=== PATIENT | male | born 1995 | race Caucasian/White ===

== ENCOUNTER 2018-12-16 15:58 | Emergency (ER) | payer OTHER, SELFPAY ==
[2018-12-16 16:01] VITALS: PULSE 98; RESP 27; TEMP 36.6; O2SAT 98
--- NOTE | 2018-12-16 16:17 | ED.GENADUL_ITS ---
Discharge Plan Disposition Patient Disposition: HOME Condition: Good Discharge Details Chief Complaint: AMS/LOC Clinical Impression: Alcohol intoxication Reason For Visit: FRANCI Primary Care Provider: Unknown,Unknown ED Provider: Rakesh Yeung Home Meds and New Rx's Prescriptions: No Action No Known Home Meds RF: 0 Discharge Instructions Instructions: Alcohol Intoxication (ED) Additional Instructions: Patient needs to stay with a responsible adult tonight. No further drinking alcohol tonight. Mental status should return to normal by morning. Return to ED if persistent vomiting, abdominal pain, continued confusion/altered mental status, other concerns. Referrals: Care Management [Provider Group] Discharge Data Discharge Date/Time-TO BE ENTERED AT DEPARTURE: 12/16/18 20:05 Medical Decision Making Patient here with presumed alcohol intoxication. Question drug ingestion though he denies. He is actively vomiting, intoxicated, agitated. EMS was able to place IV. Patient ordered for IV Phenergan to help with his vomiting but also to help with sedation. Fluids were hung. Laboratory studies ordered. Patient laboratory studies significant for an alcohol level of 200. Potassium a little low at 3.1 and will be replenished IV. He has stopped vomiting. He is sleeping. I am going to scan his head at this point just to be safe. He has had a liter of LR and a second bag of LR is hanging. Mother and updated on patient's status. Head CT is negative. Drug screen positive for marijuana only. He has had no further vomiting. He awakens relatively easily. would like to take him home and will stay with him overnight. No further alcohol intake. Return to ED if any concerns Lab Data Lab results reviewed: Yes I reviewed the patient's lab results. HPI General Mode of arrival: EMS . Date/Time Provider Initiated Documentation: 12/16/18 16:16 . Limitations to Documentation: altered mental status . Information obtained by: family, EMS and RN notes reviewed . HPI Narrative: Patient is brought in by ambulance for evaluation of altered mental status. Patient apparently has been drinking today. Mother went to check on him after she got a phone call from her [id number]. Patient was agitated and intoxicated. She placed a call to EMS. EMS transported patient in the ER. He is vomiting. He is agitated. He is swearing and not able to provide a history. Mother reports that he has no medical problems. She not aware of him having a drinking problem. Related Data Home Medications Medication Instructions Recorded Confirmed Unknown [No Known Home Meds] 03/19/16 12/16/18 Allergies Allergy/AdvReac Type Severity Reaction Status Date / Time No Known Allergies Allergy Unverified 12/16/18 16:04 General Stated Complaint: AMS/LOC GENA: 2 Review of Systems Review of Systems Unobtainable due to mental status PFS Social History Smoking/Tobacco Use Status: Never Exam Const General: intoxicated appearing and other (agitated, vomiting, swearing) Limitations: altered mental status HENMT Head: normocephalic and atraumatic Neck Neck: trachea midline and supple Resp Auscultation: clear to auscultation bilaterally Cardio Rate: regular rate Rhythm: regular rhythm Heart Sounds: S1 normal and S2 normal GI Palpation: soft and nontender Skin General skin exam: no rashes or lesions noted Neuro General: alert, awake and no focal motor deficits Psych Speech and Movement: agitated and slurred speech (mildly) Mood: irritable mood Course Vital Signs Temperature 97.9 F 12/16/18 16:01 Pulse 98 H 12/16/18 16:01 Respiratory Rate 27 H 12/16/18 16:01 Pulse Oximetry 98 12/16/18 16:01 Temperature 97.9 F 12/16/18 16:01 Temperature Source Skin 12/16/18 16:01 Pulse 98 H 12/16/18 16:01 Respiratory Rate 27 H 12/16/18 16:01 Pulse Oximetry 98 12/16/18 16:01 Oxygen Delivery Method Room Air 12/16/18 16:01 Oxygen Flow Rate 0 12/16/18 16:01 Pain Level 0 12/16/18 16:01
[2018-12-16] MEDS: Lactated Ringers 1,000 ML 1000 ML IV (16:27)
[2018-12-16 16:29] VITALS: RESP 22
[2018-12-16 16:48] LABS: Abs Immature Grans 0.02 k/cumm (0.0-0.09); Absolute Basophil Count 0.01 k/cumm (0.0-0.2); Absolute Eosinophil Count 0.03 k/cumm (0.0-0.7); Absolute Lymphocyte Count 0.91 k/cumm (1.2-3.4); Absolute Monocyte Count 0.42 k/cumm (0.11-0.7); Absolute Neutrophil Count 6.24 k/cumm (1.2-6.7); Basophils % 0.1; Eosinophils % 0.4; HCT 44.1 % (40.0-50.0); HGB 15.2 g/dL (13.5-17.5); Immature Grans % 0.3; Lymphocytes % 11.9; Mean Corp. HGB Concentration 34.5 g/dL (32.0-36.0); Mean Corpuscular Hemoglobin 30.7 pg (27.0-33.0); Mean Corpuscular Volume 89.1 fL (80-95); Mean Platelet Volume 10.2 fL (8.0-11.0); Monocytes % 5.5; Neutrophils % 81.8; Platelet Count 198 x1000/uL (130-400); RBC 4.95 m/cumm (4.50-6.00); RBC Distribution Width 13.3 % (11.8-14.1); White Blood Cell Count 7.63 k/cumm (4.4-10.8)
[2018-12-16 17:01] LABS: ALT 27 U/L (12-78); AST 21 U/L (15-37); Alkaline Phosphatase 70 U/L (46-116); Anion Gap 14.5 mmol/L (3-11); BUN 9 mg/dL (7-18); Bilirubin, Total 0.4 mg/dL (0.2-1.0); CO2 25.5 mmol/L (21.0-32.0); CREATININE 0.72 mg/dL (0.70-1.30); Calcium 8.7 mg/dL (8.5-10.1); Chloride 105 mmol/L (98-107); ETHANOL BLOOD 208.8 mg/dL (<3); Glucose 113 mg/dL (70-100); Magnesium 1.9 mg/dL (1.8-2.4); Potassium 3.1 mmol/L (3.5-5.1); Sodium 145 mmol/L (136-145); Total Protein 7.3 g/dL (6.4-8.2)
[2018-12-16] MEDS: Lactated Ringers 1,000 ML 125 ML IV (17:32)
[2018-12-16] MEDS: POTASSIUM CHLORIDE 10 MEQ/100 ML BAG 100 MEQ IVPB (17:40)
[2018-12-16 18:11] LABS: *AMPHETAMINES SCREEN URINE Negative (Negative); *BARBITURATES SCREEN URINE Negative (Negative); *BENZODIAZEPINES SCREEN URINE Negative (Negative); Cannabinoids THC POSITIVE (Negative); Cocaine Screen,Urine Negative (Negative); METHADONE URINE SCREEN Negative (Negative); OPIATES URINE SCREEN Negative (Negative); Tricyclic Antidepressants Negative (Negative)
--- NOTE | 2018-12-16 18:23 | DI.CT_ITS ---
SYMPTOM/DIAGNOSIS: ALTERED MENTAL STATUS NONCONTRAST HEAD CT: Comparison is made with 21 Mar 2011. No intracranial hemorrhage, mass or infarct is seen. The ventricles are normal in size. There is no evidence of skull fracture. The sinuses and mastoid air cells appear clear. IMPRESSION: Negative head CT.
--- NOTE | 2018-12-16 18:30 | DI.VRAD_ITS ---
EXAM: CT Head Without Contrast EXAM DATE/TIME: 12/16/2018 5:45 PM CLINICAL HISTORY: 23 years old, male; Signs and symptoms; Altered mental status/memory loss TECHNIQUE: Axial computed tomography images of the head/brain without contrast. Coronal and sagittal reformatted images were created and reviewed. COMPARISON: No relevant prior studies available. FINDINGS: Brain: No intracranial hemorrhage or extra-axial fluid collection. No evidence of mass effect or midline shift. Bajwa-white matter differentiation is intact. Ventricles: No ventriculomegaly. Bones/joints: No acute osseus lesion or fracture. Sinuses: Unremarkable as visualized. Mastoid air cells: Unremarkable. Soft tissues: Unremarkable. IMPRESSION: No acute intracranial pathology. Dictated and Authenticated by: David Dang MD. Ordering:ALTON Cameron MD
--- NOTE | 2018-12-16 19:57 | NUR.NOTE ---
pt refuses tdap stating i hate needles and i dont want one ever dont care Nursing Note:
[2018-12-16 20:12] VITALS: BP 122/66; PULSE 98; RESP 22; TEMP 36.6; O2SAT 98
--- NOTE | 2018-12-19 09:22 | PDOC.ERCMPRO ---
Care Management Progress Note 12/19-Dr. Yeung requested assistance with Rakesh establishing a PCP. Rakesh used to see Dr. Borden. No ED f/u needed. Dr. Mcmillan business information analyst. Referral faxed to [facility] this am.
== END 2018-12-16 20:05 | disposition home or self-care (01) ==
PROVIDERS: Emergency Provider Emergency Medicine
DX: F10.129 Alcohol abuse with intoxication, unspecified (principal); Y90.7 Blood alcohol level of 200-239 mg/100 ml; R11.2 Nausea with vomiting, unspecified; E87.6 Hypokalemia; F12.90 Cannabis use, unspecified, uncomplicated; R45.1 Restlessness and agitation
CPT/HCPCS: 36415; 80053; 80307; 96361; 96365; 96366; 96367; 99284; 70450; 80320; 83735; 85025; J3480

== ENCOUNTER 2019-04-23 15:58 | Emergency (ER) | payer OTHER, SELFPAY ==
[2019-04-23 16:09] VITALS: BP 125/75; PULSE 104; RESP 18; TEMP 37.1; O2SAT 97
--- NOTE | 2019-04-23 16:25 | W.ED.GENAD ---
Discharge Plan Disposition Patient Disposition: HOME Condition: Stable Discharge Details Chief Complaint: RashLesion Clinical Impression: Tick bite Primary Care Provider: Unknown,Unknown ED Provider: Kervin Vega Home Meds and New Rx's Prescriptions: No Action No Known Home Meds RF: 0 Discharge Instructions Instructions: Tick Bite (ED) Medical Decision Making 23-year-old male who [place]. Noticed a tick crawling on him and question whether it bit him on the left ankle. He is slightly anxious but exam is otherwise unremarkable, possible area of insect envenomation at the left lateral malleolus on the lower leg. Will treat with single one-time dose of doxycycline 200 mg given endemic Lyme in this area. Discussed with him home management as well as follow-up/return precautions HPI General Mode of arrival: ambulatory. Date/Time Provider Initiated Documentation: 04/23/19 16:00. Limitations to Documentation: no limitations. Information obtained by: patient. History of Present Illness 23 year old M presents to the emergency department with the chief complaint of Left ankle possible tick bite, described as mild and moderate, Quality is described as aching, and is localized to the left and lower extremity. Patient reports no radiation. Patient started experiencing this hour(s) and it has been constant. No relieving factors improve symptom(s), No exacerbating factors reported . Patient notes no other symptoms.; denies fever/chills. Patient did receive the following treatments prior to arrival, none Related Data Home Medications Medication Instructions Recorded Confirmed Unknown [No Known Home Meds] 03/19/16 12/16/18 Allergies Allergy/AdvReac Type Severity Reaction Status Date / Time No Known Allergies Allergy Unverified 12/16/18 16:04 General Stated Complaint: RashLesion GENA: 4 Review of Systems Review of Systems No fever or chills. Mild anxiety regarding tick bite. 4 systems reviewed and otherwise negative [facility] Social History Smoking/Tobacco Use Status: Never Alcohol Intake: current Alcohol Intake frequency: a few times a month Drug use: Daily Substance use type: marijuana Do you feel safe at home: Yes Do you feel safe in your relationship?: Yes Exam Narrative Exam Narrative: GEN: awake, alert, oriented 3. Pleasant, well groomed, interactive. HEAD: Normocephalic, atraumatic ENT: Mucous membranes moist, oropharynx unremarkable, External ear exam unremarkable EYES: PERRL, EOMI EXT: Full ROM, no edema, left ankle lateral malleolus with small 1 cm diameter area of erythema. No retained foreign body. Neuro: Grossly normal neurologic exam, conversant, interactive. Psych: Speech fluent, thoughts congruent, affect anxious Course Vital Signs Temperature 37.1 C 04/23/19 16:09 Pulse 104 H 04/23/19 16:09 Respiratory Rate 18 04/23/19 16:09 Blood Pressure 125/75 04/23/19 16:09 Pulse Oximetry 97 04/23/19 16:09 Temperature 37.1 C 04/23/19 16:09 Temperature Source Tympanic 04/23/19 16:09 Pulse 104 H 04/23/19 16:09 Respiratory Rate 18 04/23/19 16:09 Respiratory Effort Non-Labored 04/23/19 16:15 Blood Pressure 125/75 04/23/19 16:09 Blood Pressure Position Sitting 04/23/19 16:09 Pulse Oximetry 97 04/23/19 16:09 Oxygen Delivery Method Room Air 04/23/19 16:09 Oxygen Flow Rate 0 04/23/19 16:09 Pain Level 0 04/23/19 16:09 Comment 04/23/19 16:09
--- NOTE | 2019-04-23 16:28 | ED.GENADUL_ITS ---
Discharge Plan Disposition Patient Disposition: HOME Condition: Stable Discharge Details Chief Complaint: RashLesion Clinical Impression: Tick bite Primary Care Provider: Unknown,Unknown ED Provider: Kervin Vega Home Meds and New Rx's Prescriptions: No Action No Known Home Meds RF: 0 Discharge Instructions Instructions: Tick Bite (ED) Medical Decision Making 23-year-old male who [place]. Noticed a tick crawling on him and question whether it bit him on the left ankle. He is slightly anxious but exam is otherwise unremarkable, possible area of insect envenomation at the left lateral malleolus on the lower leg. Will treat with single one-time dose of doxycycline 200 mg given endemic Lyme in this area. Discussed with him home management as well as follow-up/return precautions HPI General Mode of arrival: ambulatory . Date/Time Provider Initiated Documentation: 04/23/19 16:00 . Limitations to Documentation: no limitations . Information obtained by: patient . History of Present Illness 23 year old M presents to the emergency department with the chief complaint of Left ankle possible tick bite, described as mild and moderate, Quality is described as aching, and is localized to the left and lower extremity. Patient reports no radiation. Patient started experiencing this hour(s) and it has been constant. No relieving factors improve symptom(s), No exacerbating factors reported . Patient notes no other symptoms.; denies fever/chills. Patient did receive the following treatments prior to arrival, none Related Data Home Medications Medication Instructions Recorded Confirmed Unknown [No Known Home Meds] 03/19/16 12/16/18 Allergies Allergy/AdvReac Type Severity Reaction Status Date / Time No Known Allergies Allergy Unverified 12/16/18 16:04 General Stated Complaint: RashLesion GENA: 4 Review of Systems Review of Systems No fever or chills. Mild anxiety regarding tick bite. 4 systems reviewed and otherwise negative [facility] Social History Smoking/Tobacco Use Status: Never Alcohol Intake: current Alcohol Intake frequency: a few times a month Drug use: Daily Substance use type: marijuana Do you feel safe at home: Yes Do you feel safe in your relationship?: Yes Exam Narrative Exam Narrative: GEN: awake, alert, oriented 3. Pleasant, well groomed, interactive. HEAD: Normocephalic, atraumatic ENT: Mucous membranes moist, oropharynx unremarkable, External ear exam unremarkable EYES: PERRL, EOMI EXT: Full ROM, no edema, left ankle lateral malleolus with small 1 cm diameter area of erythema. No retained foreign body. Neuro: Grossly normal neurologic exam, conversant, interactive. Psych: Speech fluent, thoughts congruent, affect anxious Course Vital Signs Temperature 37.1 C 04/23/19 16:09 Pulse 104 H 04/23/19 16:09 Respiratory Rate 18 04/23/19 16:09 Blood Pressure 125/75 04/23/19 16:09 Pulse Oximetry 97 04/23/19 16:09 Temperature 37.1 C 04/23/19 16:09 Temperature Source Tympanic 04/23/19 16:09 Pulse 104 H 04/23/19 16:09 Respiratory Rate 18 04/23/19 16:09 Respiratory Effort Non-Labored 04/23/19 16:15 Blood Pressure 125/75 04/23/19 16:09 Blood Pressure Position Sitting 04/23/19 16:09 Pulse Oximetry 97 04/23/19 16:09 Oxygen Delivery Method Room Air 04/23/19 16:09 Oxygen Flow Rate 0 04/23/19 16:09 Pain Level 0 04/23/19 16:09 Comment 04/23/19 16:09
[2019-04-23] MEDS: Doxycycline Hyclate 100 MG CAP 200 MG PO (16:44)
[2019-04-23 16:49] VITALS: BP 125/75; PULSE 104; RESP 18; O2SAT 97
== END 2019-04-23 16:47 | disposition home or self-care (01) ==
PROVIDERS: Emergency Provider Emergency Medicine
DX: S90.562A Insect bite (nonvenomous), left ankle, initial encounter (principal); W57.XXXA Bitten or stung by nonvenomous insect and other nonvenomous arthropods, initial encounter
CPT/HCPCS: 99283

== ENCOUNTER 2019-04-23 18:00 | Emergency (ER) | payer OTHER, SELFPAY ==
[2019-04-23 18:10] VITALS: BP 119/77; PULSE 84; RESP 12; TEMP 36.8; O2SAT 97
--- NOTE | 2019-04-23 18:24 | W.ED.GENAD ---
Discharge Plan Disposition Patient Disposition: HOME Condition: Improving Discharge Details Chief Complaint: Recheck Clinical Impression: Antibiotic drug intolerance Primary Care Provider: Unknown,Unknown ED Provider: Krevin Vega Home Meds and New Rx's Prescriptions: No Action No Known Home Meds RF: 0 Discharge Instructions Additional Instructions: You are stable for discharge to home at this time. Resume normal routine and activities. You likely have an intolerance but not true allergy to doxycycline. Please mention this to your health care providers in the future. Medical Decision Making 23-year-old male who I saw her earlier today for possible tick bite and for which she was given 200 mg of doxycycline. Patient states approximately 30 minutes after doxycycline administration he became nauseated and had some discrete bilious emesis but no edith vomiting. He is now improved. I do feel he received effect from a dose that he did not notice any pill fragments describes very small amounts of regurgitation. He is stable for discharge to home after reassurance. HPI General Mode of arrival: ambulatory. Date/Time Provider Initiated Documentation: 04/23/19 18:19. Limitations to Documentation: no limitations. Information obtained by: patient and family. History of Present Illness 23 year old M presents to the emergency department with the chief complaint of Nauseated after taking doxycycline, now improved, Quality is described as dull, and is localized to the abdomen. Patient reports no radiation. Patient started experiencing this minute(s) and it has been now resolved. No relieving factors improve symptom(s), No exacerbating factors reported . Patient notes no other symptoms.. Related Data Home Medications Medication Instructions Recorded Confirmed Unknown [No Known Home Meds] 03/19/16 12/16/18 Allergies Allergy/AdvReac Type Severity Reaction Status Date / Time No Known Allergies Allergy Unverified 12/16/18 16:04 General Stated Complaint: Recheck GENA: 5 Review of Systems Review of Systems No rash. 4 systems reviewed and otherwise negative. [facility] Social History Smoking/Tobacco Use Status: Never Alcohol Intake: current Alcohol Intake frequency: a few times a month Drug use: Daily Substance use type: marijuana Do you feel safe at home: Yes Do you feel safe in your relationship?: Yes Exam Narrative Exam Narrative: GEN: awake, alert, oriented 3. Pleasant, well groomed, interactive. HEAD: Normocephalic, atraumatic EYES: PERRL, EOMI NECK: Full ROM, no LEX, no menigismus CHEST/RESP: No respiratory distress Neuro: Grossly normal neurologic exam, conversant, interactive. Psych: Speech fluent, thoughts congruent, affect anxious Course Vital Signs Temperature 36.8 C 04/23/19 18:10 Pulse 84 04/23/19 18:10 Respiratory Rate 12 04/23/19 18:10 Blood Pressure 119/77 04/23/19 18:10 Pulse Oximetry 97 04/23/19 18:10 Temperature 36.8 C 04/23/19 18:10 Temperature Source Temporal Artery Scan 04/23/19 18:10 Pulse 84 04/23/19 18:10 Respiratory Rate 12 04/23/19 18:10 Respiratory Effort Non-Labored 04/23/19 18:13 Blood Pressure 119/77 04/23/19 18:10 Blood Pressure Position Sitting 04/23/19 18:10 Pulse Oximetry 97 04/23/19 18:10 Oxygen Delivery Method Room Air 04/23/19 18:10 Oxygen Flow Rate 0 04/23/19 18:10 Pain Level 0 04/23/19 18:10
== END 2019-04-23 18:35 | disposition home or self-care (01) ==
PROVIDERS: Emergency Provider Emergency Medicine
DX: R11.2 Nausea with vomiting, unspecified (principal); T36.4X5A Adverse effect of tetracyclines, initial encounter
CPT/HCPCS: 99283

== ENCOUNTER 2021-03-24 22:23 | Emergency (ER) | payer SELFPAY ==
--- NOTE | 2021-03-24 22:32 | ED.GENADUL_ITS ---
Discharge Plan Disposition Patient Disposition: HOME Condition: Good Discharge Details Clinical Impression: ETOH abuse Primary Care Provider: Unknown,Unknown ED Provider: Wu Gerardo Home Meds and New Rx's Prescriptions: No Action No Known Home Meds RF: 0 Discharge Instructions Instructions: Abuse of Alcohol (ED) Additional Instructions: Please follow-up closely with your counselors. Please use your mental health advocate whenever you feel you are struggling. If you notice any worsening of your symptoms, or any new symptoms such as vomiting, diarrhea, fever, chills, shortness of breath, chest pain, numbness, weakness, or fainting , please return immediately to the emergency department for reevaluation. Please follow up with your primary care provider as soon as possible for reassessment and reevaluation. As always, it was a pleasure participating in your medical care today. Discharge Data Discharge Date/Time-TO BE ENTERED AT DEPARTURE: 03/25/21 07:51 Medical Decision Making <NAKIA Bauer - Last Filed: 03/25/21 16:09> Patient is a 25-year-old male presenting today, brought in by his father, with chief complaint of unusual behavior. Patient does acknowledge his unusual behavior and attributes this to large amount of recent stress. Patient is perseverating on recent separation from his as well as failed relationship. He reports feeling physically well. He is not endorsing any hallucinations. Patient endorses marijuana use on a daily basis but denies any other drug or alcohol use. He denies suicidal or homicidal thoughts. Spoke with patient's father, Gerard [phone]. He reports that patient claims, he hasnt smoked anything other than marijuana but when he drinks he gets a little whacked and crazy. He reports he smelled ETOH. Patient has had increased stress recently. recently left him after alleged affair on part of the patient. This new relationship has also ended. Father is concerned that he may be doing other illicit drugs. He is paranoid and all over the place. States that he is often paranoid when he is smoking marijuana but that tonight, it is 10 times worse. Concerned that brother is diagnosed with schizophrenia. On exam, patient is exhibiting flight of ideas and pressured speech. He is d enying any suicidal or homicidal thoughts. I do appreciate smell of alcohol. Patient is tachycardic and hypertensive. I am concerned that the patient is a flight risk given his current mental status. He is very anxious and animated. Offer the patient anxiolytic which he agrees to take. Plan to obtain baseline labs with concern for possible psychiatric admission. Have requested a one-to-one sitter as well as mental health evaluation. After p.o. Ativan, patient is much more calm, sleeping currently. Labs reviewed. No leukocytosis. Stable H&H with CMP without significant abnormality. TSH is elevated at 6.56, free T4 within normal limits. No abnormalities in the UA. UDS significant for positive THC. Alcohol alcohol 293. This is likely contributing to the patient's symptoms. The mental health unable to evaluate at this time secondary to alcohol being on board. Plan to keep the patient in the department overnight with plan for mental health to see him in the morning. At the end of my shift, care transition to Dr. Gerardo with final disposition pending. <Wu Gerardo DO - Last Filed: 03/25/21 07:33> Patient has been reassessed, he is now sober clinically. He denies any homicidal or suicidal ideations. He does not want to harm himself, and he shows no evidence of pressured speech. He is returned to his normal baseline. Mental health has assessed him and deemed him safe for discharge with follow-up. I have extensively reviewed the treatment plan and discharge instructions with the patient and their family. I have addressed all patient concerns at this time. The patient and family was made aware of what symptoms to monitor for that would warrant a return to the emergency department. Discussed the plan with the patient and family, they demonstrate verbal understanding and agreement with our assessment and plan at this time. The documentation in this chart was dictated using Voxy dictation software. Please excuse any dictation errors. HPI <NAKIA Bauer - Last Filed: 03/25/21 16:09> General Mode of arrival: ambulatory . Date/Time Provider Initiated Documentation: 03/24/21 22:24 . Limitations to Documentation: altered mental status . Information obtained by: patient, family (father, Gerard) and RN notes reviewed . HPI Narrative: Patient is a 25-year-old male brought in by his father with concern for acting unusually. This is included appearing paranoid. Patient denies any hallucinations. Father is concerned that this may be drug-induced. Patient does report that he smokes large amounts of marijuana but denies any other drug use. He denies any alcohol intake. Denies any suicidal or homicidal ideation. Related Data Home Medications Medication Instructions Recorded Confirmed Unknown [No Known Home Meds] 03/19/16 03/24/21 Allergies Allergy/AdvReac Type Severity Reaction Status Date / Time doxycycline Allergy Mild vomiting Verified 03/24/21 22:40 General GENA: 5 Review of Systems <NAKIA Bauer - Last Filed: 03/25/21 16:09> Unobtainable due to mental status PFSH <NAKIA Bauer - Last Filed: 03/25/21 16:09> Social History Smoking/Tobacco Use Status: Never Smoking risk assessment performed?: Yes Alcohol Intake: current Alcohol Intake frequency: a few times a month Drug use: Daily Substance use type: marijuana Do you feel safe at home: Yes Do you feel safe in your relationship?: Yes Exam <NAKIA Bauer Last Filed: 03/25/21 16:09> Const General: comfortable, well developed, anxious and intoxicated appearing Nutritional Appearance: average body habitus and well nourished Orientation: alert, awake and oriented x3 Eyes General: appearance normal, both eyes and all related structures Resp Effort & Inspection: normal respiratory effort, able to speak in complete sentences and no respiratory distress Auscultation: clear to auscultation bilaterally, no rales, no rhonchi and no wheezes Cardio Rate: regular rate Rhythm: regular rhythm Heart Sounds: S1 normal and S2 normal Skin General skin exam: no rashes or lesions noted Trauma: no lacerations or abrasions Neuro General: patient alert and patient awake Cognition: normal cognition Speech: speech normal Gait: normal gait Psych Appearance: disheveled Speech and Movement: agitated, pressured speech and restless Mood: labile mood Affect: animated Attitude: cooperative Thought Process: flight of ideas Thought Content: normal Insight: poor Judgment: poor Sign Out <NAKIA Bauer - Last Filed: 03/25/21 16:09> Sign Out Data: Sign Out Comment: Care transition to Dr. Gerardo with disposition pending. Patient acting erratically, pressured speech. Currently intoxicated. Will need mental health evaluation once sober Last updated by Cassidy Delgadillo PA at 03/25/21 01:23
[2021-03-24 22:38] VITALS: BP 171/74; PULSE 113; RESP 20; TEMP 37.2; O2SAT 97
[2021-03-24 22:50] LABS: Bilirubin Negative (Negative); Blood Negative (Negative); Clarity Clear (Clear); Glucose Negative (Negative); Ketones Negative (Negative); Leukocyte Esterase Negative (Negative); Nitrite Negative (Negative); Specific Gravity <= 1.005 (1.005-1.025); Urobilinogen 0.2 EU/dL (Up TO 0.2)
[2021-03-24 23:03] LABS: *AMPHETAMINES SCREEN URINE Negative (Negative); *BARBITURATES SCREEN URINE Negative (Negative); *BENZODIAZEPINES SCREEN URINE Negative (Negative); Cannabinoids THC Positive (Negative); Cocaine Screen,Urine Negative (Negative); METHADONE URINE SCREEN Negative (Negative); OPIATES URINE SCREEN Negative (Negative)
[2021-03-24 23:04] LABS: Tricyclic Antidepressants Negative (Negative)
[2021-03-24 23:08] LABS: Abs Immature Grans 0.02 10^3/uL (0.0-0.06); Absolute Basophil Count 0.04 10^3/uL (0.0-0.2); Absolute Eosinophil Count 0.04 10^3/uL (0.0-0.7); Absolute Lymphocyte Count 2.07 10^3/uL (1.2-3.4); Absolute Monocyte Count 0.94 10^3/uL (0.1-0.8); Absolute Neutrophil Count 6.81 10^3/uL (1.2-6.7); Basophils % 0.4; Eosinophils % 0.4; HCT 49.8 % (40.0-50.0); HGB 16.7 g/dL (13.5-17.5); Immature Grans % 0.2; Lymphocytes % 20.9; MCH 31.3 pg (27.0-33.0); MCHC 33.5 % (32.0-36.0); MCV 93.4 fL (80-95); MPV 9.5 fL (8.0-11.0); Monocytes % 9.5; Neutrophils % 68.6; Nucleated RBC 0 %; Platelet Count 270 10^3/uL (130-400); RBC 5.33 10^6/uL (4.36-5.78); RDW 13.9 % (11.8-14.1); RDW-SD 48.4 fL; WBC 9.92 10^3/uL (4.4-10.8)
[2021-03-24] MEDS: LORazepam 1 MG TAB PO ×2 (23:16)
[2021-03-24 23:31] LABS: ALT 36 U/L (16-63); AST 20 U/L (15-37); Albumin 4.6 g/dL (3.4-5.0); Alkaline Phosphatase 73 U/L (46-116); BUN 8 mg/dL (7-18); Bilirubin, Total 0.4 mg/dL (0.2-1.0); CREATININE 0.7 mg/dL (0.70-1.30); Calcium 9.2 mg/dL (8.5-10.1); Chloride 105 mmol/L (98-107); ETHANOL BLOOD 293.8 mg/dL (<3); Glucose 108 mg/dL (74-106); Potassium 3.8 mmol/L (3.5-5.1); Sodium 143 mmol/L (136-145); TSH 6.56 uIU/mL (0.36-3.74); Total Protein 8.6 g/dL (6.4-8.2)
[2021-03-24 23:37] LABS: Salicylate < 2.8 mg/dL (<2.8)
[2021-03-24 23:38] LABS: Acetaminophen < 2 ug/mL (10-30)
[2021-03-25 00:23] LABS: FREE T4 1.12 ng/dL (0.76-1.46)
[2021-03-25 01:34] LABS: Source Nasal/Nares
[2021-03-25 02:13] LABS: COVID-19 PCR Negative (Negative)
[2021-03-25 06:19] VITALS: BP 137/97; PULSE 75; RESP 16; O2SAT 100
--- NOTE | 2021-03-25 06:23 | NUR.NOTE ---
Nursing Note: Father and mother called for update, update given to his mother. Patient is awake at this time and acting appropriately. Patient's father called back shortly after with concerns that the patient has been drinking secretly and has been hiding his drinking. Father is concerned that patient may experience alcohol withdrawal. Parents requesting help with finding patient counseling and substance abuse counseling. Did give information to local agencies but explained there are waiting lists at this time but that patient should establish a PCP and that some agencies such as [facility] offer multiple services that could benefit patient.
[2021-03-25 08:01] VITALS: BP 171/74; PULSE 113; RESP 16; TEMP 37.2; O2SAT 100
--- NOTE | 2021-03-25 09:27 | MHPN_ITS ---
Date of service: 03/25/21 Time of Service: 09:40 Mental Health Progress Note Progress Note Progress Note: Presenting Issue: Client is a 25 year old male who presents to the ED tonight for unusual behavior, transported by his father. Upon arrival, client was gesturing strangely and perseverating on his relationship, and speaking tangentially and with paranoid thoughts, and had an approximate CLAUDIA of 0.29. Client denies SI/HI and thoughts of self harm. Precipitating Factors Client reports myriad new stressors, including a new relationship that developed after he cheated on his . Client reports smoking up to 2 grams of cannabis per day, and that his paranoia is exacerbated by alcohol, which he used last night. Disposition * Behavior: Client is pleasant and forthcoming, denies SI and HI. Client is restless but denies anxiety. *Eye Contact: Good/consistent *Mood: Good but client reports he feels stressed about his relationship *Affect: Normal *Appetite: Client reports normal appetite *Sleep(troubel falling/staying asleep): Client reports poor sleep Plan(please elaborate and include that physician is consulted with plan and/or placement): Client will return home with his parents. Client agrees to opening paperwork with this engineering writer, which is complete, and requests an appointment for therapy. Referral for therapy will be made 03/25/21. Client states he will abstain from ETOH. Clinician's Name , Title, and Signature Ynes AVILA clinician [facility] Make sure that you are photocopying and submitting this to [facility] records Dept. to be scanned into chart.
== END 2021-03-25 07:51 | disposition home or self-care (01) ==
PROVIDERS: Physician Assistant; Emergency Provider Student in an Organized Health Care Education/Training Program
DX: F10.120 Alcohol abuse with intoxication, uncomplicated (principal); Y90.8 Blood alcohol level of 240 mg/100 ml or more; F12.10 Cannabis abuse, uncomplicated; Z03.818 Encounter for observation for suspected exposure to other biological agents ruled out
CPT/HCPCS: 36415; 80053; 80307; 87635; 99283; 80320; 80329; 81003; 84439; 84443; 85025

== ENCOUNTER 2022-09-18 12:04 | Outpatient (REF) | payer SELFPAY ==
[2022-09-19 11:38] LABS: COVID-19 RT-PCR UVMMC Result Negative (Negative)
== END 2022-09-18 12:05 | disposition home or self-care (01) ==
LOC: LBN 12:04
PROVIDERS: Visit Provider Nurse Practitioner Family
DX: Z20.822 Contact with and (suspected) exposure to COVID-19 (principal)
CPT/HCPCS: U0003

== ENCOUNTER 2023-08-11 15:07 | Outpatient (REF) | payer MEDICAID, SELFPAY | END 2023-08-11 15:08 | disposition home or self-care (01) | LOC: LBN 15:07 | PROVIDERS: Visit Provider Physician Assistant | DX: J02.9 Acute pharyngitis, unspecified (principal) | CPT/HCPCS: 87070 ==

== ENCOUNTER → 2023-08-30 01:33 | Outpatient (CLI) | payer MEDICAID, SELFPAY ==
--- NOTE | 2023-08-30 09:15 | DI.US_ITS ---
Exam(s) US SOFT TISSUE EXTREMITY EXAM: US SOFT TISSUE EXTREMITY CLINICAL HISTORY: cyst rt hand; dermoid, d36.3. TECHNIQUE: Ultrasound was performed using standard protocol. COMPARISON: No exams were available for comparison FINDINGS: Sonographic assessment utilizing grayscale and color Doppler imaging was performed and targeted to th e area of clinical concern. There is a 0.9 x 0.5 x 1.0 cm hypoechoic solid nodule on the volar aspect of the hand corresponding t o the palpable abnormality. It is avascular. IMPRESSION: Nonspecific solid 1 cm nodule in the volar aspect of the hand. An MRI without and with contrast is r ecommended for further evaluation. DATA REPOSITORY:
== END ==
PROVIDERS: Visit Provider Physician Assistant
DX: D36.7 Benign neoplasm of other specified sites (principal)
CPT/HCPCS: 76881

== ENCOUNTER 2024-09-30 15:29 | Emergency (ER) | payer MEDICAID, SELFPAY ==
[2024-09-30 15:32] VITALS: BP 146/80; PULSE 97; RESP 18; TEMP 36.3; O2SAT 95
[2024-09-30 15:57] VITALS: RESP 20
--- NOTE | 2024-09-30 16:09 | ED.GENADUL_ITS ---
Discharge Plan Disposition Patient Disposition: Home Condition: Good Discharge Details Clinical Impression: Weakness Primary Care Provider: None,None ED Provider: Ashly Garcia Home Meds and New Rx's Prescriptions: No Action No Known Home Meds Discharge Instructions Instructions: Fatigue ED Additional Instructions: Please follow-up with your primary care doctor. In the meantime if you do get worse, develop any new or concerning symptoms or if you change your mind regarding further workup please return to the emergency department immediately. HPI General Date/Time Provider Initiated Documentation: 09/30/24 15:30 . HPI Narrative: The patient is a 28-year-old male with a history of substance abuse disorder who comes to the emergency department for nodding off. History is obtained from the patient and his mother. His mother reports that for the past 2 months the patient has been nodding off in the middle of the day. The patient thinks its only been ongoing for the past week. The patient thinks it secondary to him not sleeping at night due to a number of different reason. Reports that he will sleep maybe every other day due to lifestyle choices. There is also concern that the crack that he snorts may be contaminated with fentanyl. Reports that he has been getting his crack from the same source. Denies any other concern by his mother is concerned he may have mono. The patient does not think he has mono and denies any sore throat. Denies any enlarged glands according to him. Denies any fevers or chills. Denies abdominal pain, nausea or vomiting. Again patient reports that he is just nodding off due to his poor lifestyle choices. His mother was concerned and brought him to the emergency department for an evaluation. Related Data Home Medications ?Medication ?Instructions ?Recorded ?Confirmed Unknown [No Known Home Meds] 09/30/24 09/30/24 Allergies Allergy/AdvReac Type Severity Reaction Status Date / Time doxycycline Allergy Mild vomiting Verified 09/30/24 15:39 General Stated Complaint: GenMedical GENA: 3 Review of Systems Narrative: Review of systems are negative except as mentioned. Exam Narrative Exam Narrative: The patient is in no acute distress. Pupils are round, equal and reactive. Patient has no tonsillar swelling, erythema or edema noted. He has no fullness to the soft or hard palate or the floor of the mouth. He has no trismus. Patient has no cervical lymphadenopathy. Heart is regular in rate and rhythm. Lungs are clear to auscultation bilaterally. The abdomen is soft with normal bowel sounds and nontender to palpation throughout. No lower extremity edema noted. Patient has equal radial pulses. Skin is warm and dry. Course Vital Signs Vital signs: Vital Signs Temperature 36.3 C L 09/30/24 15:32 Pulse 97 H 09/30/24 15:32 Respiratory Rate 18 09/30/24 15:32 Blood Pressure 146/80 H 09/30/24 15:32 Pulse Oximetry 95 09/30/24 15:32 Temperature 36.3 C L 09/30/24 15:32 Pulse 97 H 09/30/24 15:32 Respiratory Rate 20 09/30/24 15:57 Respiratory Effort Normal, Non-Labored 09/30/24 15:57 Respiratory Depth Normal 09/30/24 15:57 Respiratory Pattern Normal 09/30/24 15:57 Blood Pressure 146/80 H 09/30/24 15:32 Pulse Oximetry 95 09/30/24 15:32 Oxygen Delivery Method Room Air 09/30/24 15:32 Oxygen Flow Rate 0 09/30/24 15:32 Medical Decision Making I had a long discussion with the patient and his mother. The patient is only comfortable with a urine drug screen and would like to hold off on further workup so this had been ordered for him. I was able to provide the patient some test strips for his recreational drugs that he uses at home to test for fentanyl and even xylazine. He was given an entire hard reduction bag. This bag includes 2 doses of Narcan with instructions on how to use this, alcohol swabs, masks, resources for help with substance abuse, CPR mask. The patient was quite grateful to receive this bag. Urine toxicologic screen was positive only for cocaine and THC. I updated the patient and his mother regarding this. While I was talking to the patient he appears to be dozing off but states that he was merely closing his eyes. He continued to decline further workup. Since the patient is not floridly psychotic, no complaints of suicidality homicidality I am not able to force the patient to undergo testing that he does not agree with therefore he is to be discharged. He is encouraged regardless to follow-up with his primary care doct or and or to return to the emergency department with any worsening symptoms or any other concerns or if he changes mind regarding further workup. Quality:SDOH Health Related Social Needs: No Data to Display PFSH All Active Problems Weakness (Acute) ETOH abuse (Chronic) Social History Smoking/Tobacco Use Status: Current, status unknown Tobacco Type: e-cigarettes and smokeless tobacco Smoking risk assessment performed?: Yes Alcohol Intake: current Alcohol Intake frequency: a few times a week Alcohol type: beer Drug use: Daily Substance use type: marijuana and crack/cocaine Do you feel safe at home: Yes Do you feel safe in your relationship?: Yes PAWSS Have you Been Recently Intoxicated or Drunk Within the Last 30 days?: Yes Have you Ever Experienced Previous Episodes of Alcohol Withdrawal?: No Have you ever Experienced Withdrawal Seizures?: No Have you ever Experienced Delirium Tremens(DT)s?: No Have you ever undergone Alcohol Rehabilitation Treatment (i.e, inpt ot o utpatient treatment programs)?: No Have you ever Experienced Blackouts?: No Have you ever Combined Alcohol with other Downers within the last 90 days?: No Have you ever Combined Alcohol with any other Substance of Abuse during the last 90 days?: No Result: 1
--- OUTSIDE RECORDS SUMMARY | 2024-09-30 16:42 | XMS_ITS | Referral Summary ---
Author Organization [facility] Address [address] [place] [address] Care Team Providers Care Desizing Machine Operator Head End Name Role Phone Unavailable Primary Care Provider Unavailabl e Social History Tobacco Use Types Packs/Day Years Used Date Smoking Tobacco: Never Assessed Sex and Gender Information Value Date Recorded Sex Assigned at Not on file Legal Sex Male 0:52 EDT Gender Identity Not on file Sexual Orientation Not on file Plan of Treatment Not on file
--- OUTSIDE RECORDS SUMMARY | 2024-09-30 16:42 | XMS_ITS | Encounter Summary ---
Author Organization [facility] Address [address] [place] [address] Care Team Providers Care Banquet Director Name Role Phone Unavailable Primary Care Provider Unavailabl e Encounter Details Date Type Department Care Team (Late st Contact Info) Description 09/18/2022 Lab Requisition [facility] Pathology & Laboratory Medicine - [facility] [address] [place] [address] Outr Resulting Lab, Provider Social History Tobacco Use Types Packs/Day Years Used Date Smoking Tobacco: Never Assessed Sex and Gender Information Value Date Recorded Sex Assigned at Not on file Legal Sex Male 0:52 EDT Gender Identity Not on file Sexual Orientation Not on file documented as of this encounter Plan of Treatment Not on file documented as of this encounter Procedures Procedure Name Priority Date/Time Associated Diagnosis Comments ZZCOVID-19 TEST [facility] PCR Today 09/17/2022 13:35 EDT COVID-19 TESTING Routine 09/17/2022 13:3 5 EDT documented in this encounter Results * COVID-19 TEST [facility] PCR (09/17/2022 13:35 EDT) Swab 09/17/2022 13:3 5 EDT 09/18/2022 17:02 EDT us Provider Outr Resulting Lab MICROBIOLOGY - GENER AL ORDERABLES Final Result [facility] [address] [place] [address] * COVID-19 TESTING (09/17/2022 13:35 EDT) COVID-19 rt-PCR Result Negative Negative 09/19/2022 11:32 EDT [facility] Comment: This test has not been FDA cleared or approved. This test has been authorized by FDA under an EUA for use by authorized laboratories. This test has been authorized only for detection of nucleic acid from 2019-nCoV, not for any other viruses or pathogens. This test is only authorized for the duration of the declaration that circumstances exist justifying the authorization of emergency use of in vitro diagnostic tests for detection and/or diagnosis of 2019-nCoV under section 564(b)(1) of Act, 21 U.S.C ?? 360bbb-3(b) (1), unless the authorization is terminated or revoked sooner. Negative results do not preclude 2019-nCoV infection and should not be used as the sole basis for treatment or other patient management decisions. Negative results must be combined with clinical observations, patient history, and epidemiological information. Testing was performed using the gavi SARS-CoV-2 assay ([employer] on the Gavi 6800 System Performing Lab Gavi [address] [facility] 09/19/2022 11:32 EDT [facility] Swab 09/17/2022 13:3 5 EDT 09/18/2022 17:02 EDT us Provider Outr Resulting Lab MICROBIOLOGY - GENER AL ORDERABLES Final Result [facility] [address] [place] [address] documented in this encounter Visit Diagnoses Not on filedocumented in this encounter
--- OUTSIDE RECORDS SUMMARY | 2024-09-30 16:42 | XMS_ITS | Clinical Summary ---
Author Organization [facility] Address [address] [place] [address] Care Team Providers Care Flight Teacher Name Role Phone Unavailable Primary Care Provider Unavailabl e Social History Tobacco Use Types Packs/Day Years Used Date Smoking Tobacco: Never Assessed Sex and Gender Information Value Date Recorded Sex Assigned at Not on file Legal Sex Male 0:52 EDT Gender Identity Not on file Sexual Orientation Not on file Plan of Treatment Health Maintenance Due Date Last Done Comments Hepatitis C Screen 1993 Hepatitis B Vaccine (1 of 3 - 19+ 3-dose series) 10/30 COVID-19 Vaccine ( season) 2024
[2024-09-30 16:48] LABS: *AMPHETAMINES SCREEN URINE Negative (Negative); *BARBITURATES SCREEN URINE Negative (Negative); *BENZODIAZEPINES SCREEN URINE Negative (Negative); Cannabinoids THC Positive (Negative); Cocaine Screen,Urine Positive (Negative); METHADONE URINE SCREEN Negative (Negative); OPIATES URINE SCREEN Negative (Negative)
[2024-09-30 16:58] LABS: Tricyclic Antidepressants Negative (Negative)
[2024-09-30 17:14] VITALS: BP 110/57; PULSE 60; RESP 18; O2SAT 98
== END 2024-09-30 17:15 | disposition home or self-care (01) ==
PROVIDERS: Emergency Provider Emergency Medicine
DX: R53.1 Weakness (principal); F14.90 Cocaine use, unspecified, uncomplicated; F17.200 Nicotine dependence, unspecified, uncomplicated
CPT/HCPCS: 80307; 99282; 99283

== ENCOUNTER 2025-03-26 22:08 | Outpatient (REF) | payer MEDICAID, SELFPAY | END 2025-03-26 22:09 | disposition home or self-care (01) | LOC: LBN 22:08 | PROVIDERS: Visit Provider Nurse Practitioner Family | DX: B83.9 Helminthiasis, unspecified (principal) | CPT/HCPCS: 87015; 87177; 87209; 87269; 87272 ==